=== PATIENT | male | born 1970 | race Caucasian/White ===

== ENCOUNTER 2020-02-17 15:38 | Inpatient (IN) | payer OTHER ==
[2020-02-17] VITALS (10 sets, daily range): BP systolic 109–163; BP diastolic 72–100
[~2020-02-17] VITALS: Ht 180.3 cm; Wt 78.9 kg
[2020-02-17 16:45] LABS: HEMATOCRIT 38.9 % (42.0-52.0); HEMOGLOBIN 13.6 gm/dL (14.0-18.0); MCV 105.7 fL (80.0-100.0); MPV 8.5 fl. (7.2-11.1); NUCLEATED RBCS 0 /100WBC; PLATELET COUNT* 230 thou/uL (150-400); RBC 3.68 mil/uL (4.50-6.00); RDW-CV 12.5 % (10.5-14.5); WBC 18.7 thou/uL (4.0-11.0)
[2020-02-17 16:55] LABS: CALCIUM 8.3 mg/dL (8.5-10.1); CREATININE 1.5 mg/dL (0.6-1.3); POTASSIUM 3.5 mmol/L (3.5-5.1)
[2020-02-17 16:56] LABS: APTT 26.4 Seconds (25.0-31.3); INR 1.3; PROTIME 13.4 Seconds (9.20-11.50)
[2020-02-17 17:00] LABS: ALBUMIN 3.3 g/dL (3.4-5.0); PHOSPHORUS* 2.7 mg/dL (2.5-4.9); TOTAL PROTEIN 7.3 g/dL (6.4-8.2)
[2020-02-17 17:03] LABS: MAGNESIUM 0.8 mg/dL (1.8-2.4)
[2020-02-17 17:06] LABS: ABSOLUTE LYMPHOCYTES 1.3 thou/uL (0.8-5.3); ABSOLUTE MONOCYTES 0.9 thou/uL (0.0-1.2); ABSOLUTE NEUTROPHILS 16.5 thou/uL (1.6-8.1); ATYPICAL LYMPHS 3 %; PLATELET ESTIMATE ADEQUATE
[2020-02-17 17:11] LABS: ACETAMINOPHEN < 2 ug/mL (10-30); ALCOHOL < 10 mg/dL (<10); SALICYLATE < 2.8 mg/dL (2.8-20.0)
[2020-02-17 19:03] LABS: URINE BILIRUBIN NEGATIVE (Negative); URINE BLOOD NEGATIVE (Negative); URINE CLARITY CLEAR; URINE COLOR YELLOW; URINE GLUCOSE-RANDOM NEGATIVE (Negative); URINE KETONES NEGATIVE (Negative); URINE LEUKOCYTES-REFLEX NEGATIVE (Negative); URINE NITRITE-REFLEX NEGATIVE (Negative); URINE PROTEIN NEGATIVE (Negative); URINE SPECIFIC GRAVITY <= 1.005 (1.005-1.030); URINE UROBILINOGEN 0.2 E.U./dl (0.2-1.0)
--- NOTE | 2020-02-17 19:05 | NUR ---
PT APPEARS TO BE HAVING A LOT OF DIFFICULTY USING A URINAL. PT WAS INSTRUCTED BY THIS NURSE, AND BED LINNENS, GOWN AND UNDERGARMENTS WERE CHANGED.
[2020-02-17 19:12] LABS: AMP/METHAMP Negative (Negative); BARBITURATES Negative (Negative); BENZODIAZEPINES Negative (Negative); COCAINE Negative (Negative); METHADONE Negative (Negative); OPIATES Negative (Negative); PCP Negative (Negative); THC Negative (Negative)
--- NOTE | 2020-02-17 23:06 | NUR ---
PT ADMITTED TO ICU AT 1915 FOR ETOH WITHDRAWEL. PT'S CIWA SCORE 16 UPON ARRIVAL. PT ANXIOUS, RESTLESS, IMPULSIVE AND CONFUSED. PT GIVEN ATIVAN ER CIWA PROTOCOL. PT'S FRIEND PROVIDED HEALTH HISTORY AND INFORMATION REGARDING RECENT EVENTS. PT IS ORIGINALLY FROM [facility] AND BEEN HERE SINCE ATTENDING COLLEGE IN [place]. 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 PT NO LONGER WORKING DUE TO COVID. PT WAS LIVING WITH ABOVE STATED FRIEND BUT EAS NOT ALLOWED TO DRINK IN HIS HOME SO HE LEFT AND HAS BEEN LIVING IN THE [facility]. FRIEND STATES PATIENT HAS BEEN A DAILY DRINKER FOR GREATER THAN TEN YEARS THAT HE KNOWS OF. PT IS UNMARRIED WITH NO CHILDREN. ALL FAMILY MEMBERS ARE IN HIS [facility].
[2020-02-18] VITALS (42 sets, daily range): BP systolic 88–169; BP diastolic 56–129
[2020-02-18 01:15] LABS: HEMATOCRIT 30.2 % (42.0-52.0); MCHC 35.8 g/dL (28.0-37.0); MCV 106.1 fL (80.0-100.0); RBC 2.85 mil/uL (4.50-6.00); RDW-CV 12.6 % (10.5-14.5); WBC 13.9 thou/uL (4.0-11.0)
[2020-02-18 01:17] LABS: HEMOGLOBIN 10.8 gm/dL (14.0-18.0)
[2020-02-18 01:27] LABS: ALBUMIN 2.7 g/dL (3.4-5.0); CALCIUM 7.4 mg/dL (8.5-10.1); CREATININE 1.1 mg/dL (0.6-1.3); POTASSIUM 3.4 mmol/L (3.5-5.1); TOTAL BILIRUBIN 1.8 mg/dL (<0.1-1.0); TOTAL PROTEIN 5.9 g/dL (6.4-8.2)
[2020-02-18 06:35] LABS: MAGNESIUM 2.2 mg/dL (1.8-2.4); POTASSIUM 3.7 mmol/L (3.5-5.1)
--- NOTE | 2020-02-18 11:41 | EKG ---
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: TIMMY : 1970 Requested By: Radha Mcqueen Order Number: [id number] MD: Anrdes Sanchez Measurements Intervals [place] Rate: 138 P: 62 MD: 101 QRS: -48 QRSD: 95 T: 0 QT: 324 QTc: 491 Interpretive Statements Sinus tachycardia Left anterior fascicular block Abnormal R-wave progression, late transition Minimal ST depression, diffuse leads Borderline prolonged QT interval No previous ECG available for comparison Electronically Signed On 02-18-2020 11:41:43 CDT by Andres Sanchez [email or web address] <ELECTRONICALLY SIGNED> By: Otilio Sanchez MD, [facility] 02/18/20 1141 1603 1603 Otilio Sanchez MD, [facility] /EPI
--- NOTE | 2020-02-18 16:53 | NUR ---
ASSUMED CARE OF PT AROUND 0730 THIS AM. REFER TO ASSESSMENT. PT GIVEN IV ATIVAN INDICATED THIS SHIFT. IVF INFUSING ORDERED. CIWA MONITORED THROUGHOUT SHIFT. PT CALM AND COOPERATIVE THIS SHIFT. EASILY REORIENTED. VSS. TELE SR. IV METOPROLOL HELD FOR A FEW DOSES THIS SHIFT D/T SOFT BLOOD PRESSURES AND MORE CONTROLED HEART RATE. PT TOLERATING CLEAR LIQUID DIET. NO OTHER CONCERNS AT THIS TIME. CLWR. WCTM.
--- NOTE | 2020-02-18 20:14 | NUR ---
INITAL ASSESMENT COMPLETED AT 1999. PT'S CIWA SCORE 16. PT ATTEMPTING TO EXIT BED. PT GIVEN PRN ATIVAN IV PER CIWA PROTOCOL. BED RAILS UP X4, BED ALARM ON. FREQUENT VISUAL CHECKS DONE.
--- NOTE | 2020-02-18 20:45 | NUR ---
PT ATTEMPTING TO CLIMB OUT OF BED BETWEEN SIDE RAILS. PT GIVEN PRN ATIVAN
--- NOTE | 2020-02-18 21:13 | NUR ---
PT PULLLING OFF MONITORING EQUIPMENT AND ATTEMPTING TO REMOVE MEDINA CATHETER. PT GIVEN PRN HALDOL.
--- NOTE | 2020-02-18 22:25 | NUR ---
PT PULLING OFF MONITORING EQUIPMENT AND ATTEMPTING TO PULL OUT MEDINA CATHETER. CIWA >25
--- NOTE | 2020-02-18 22:59 | NUR ---
PT CLIMBING OVER SIDE RAILS. PT REPOSITIONED IN BED. PRN ATIVAN GIVEN FOR CIWA SCORE OF 30.
[2020-02-19] VITALS (46 sets, daily range): BP systolic 93–168; BP diastolic 61–110
--- NOTE | 2020-02-19 02:35 | NUR ---
PT PULLED OFF LEADS AND ATTEMPTING TO CLIMB OVER SIDE RAILS. PRN ATIVAN GIVEN FOR CIWA OF 30.
[2020-02-19 03:05] LABS: GLYCOHEMOGLOBIN (HGB A1C) 5.2 % (4.8-5.6)
--- NOTE | 2020-02-19 04:34 | NUR ---
PT PULED LEADS OFF AND ATTEMPTING TO REMOVE MEDINA.
[2020-02-19 04:37] LABS: HEMATOCRIT 28.1 % (42.0-52.0); MCHC 35.7 g/dL (28.0-37.0); MCV 106.6 fL (80.0-100.0); MPV 8.3 fl. (7.2-11.1); RBC 2.63 mil/uL (4.50-6.00); RDW-CV 12.4 % (10.5-14.5); WBC 9.3 thou/uL (4.0-11.0)
[2020-02-19 04:56] LABS: ALBUMIN 2.7 g/dL (3.4-5.0); CALCIUM 7.2 mg/dL (8.5-10.1); CREATININE 0.9 mg/dL (0.6-1.3); MAGNESIUM 1.6 mg/dL (1.8-2.4); POTASSIUM 3.4 mmol/L (3.5-5.1); TOTAL BILIRUBIN 1.4 mg/dL (<0.1-1.0); TOTAL PROTEIN 5.9 g/dL (6.4-8.2)
[2020-02-19 13:35] LABS: MAGNESIUM 1.9 mg/dL (1.8-2.4); POTASSIUM 3.7 mmol/L (3.5-5.1)
--- NOTE | 2020-02-19 14:56 | NUR ---
ICU rounds: ETOH w/drawal. CIWA is 21, down from 30 yesterday. Replacing electrolytes. PRN ativan. BP elevated, on scheduled low pressor. Pt was sound asleep when CM went to assess, left VM for Pt's contact. Will continue to f/u to complete assessment.
--- NOTE | 2020-02-19 19:31 | NUR ---
CIWA DECREASING OVER THE DAY, LAST ONE 10. VSS. METOPROLOL SCHEDULED FOR HIGH BP. BANANA BAG AT 100 MLS/HR. PT WAS REALLY HUNGRY, HAD SOME SNACKS AND ATE 100% OF HIS DINNER, HAD TO BE FED. OUT OF BED IN A CHAIR FOR FEW MINUTES, MIN ASSIST x1. PROGRESSING TOWARDS GOALS.
--- NOTE | 2020-02-19 22:12 | NUR ---
INITAL ASSESMENT COMPLETED AT 1999. PT RESTING QUIETLY IN BED AT THAT TIME WATCHING TELEVISION. CIWA SCORE AT 7 DURING THAT TIME. AT 2200 PT ATTEMTING TO CLIMB OVER SIDE RAILS STATING HE WAS GOING OUTSIDE. PT ALERT TO PERSON AND SITUATION. PT HAVING DISORGANIZED SPEECH AND DIFFICULTY REMEMBERING OR FOLLOWING INSTRUCTIONS. PT HAVING SEVERE TREMORS, CIWA SCORE >20. PT GIVEN PRN MEDS, REPOSITIONED AND MAINTAINED UNDER DIRECT WATCH AT THIS TIME.
--- NOTE | 2020-02-19 22:50 | NUR ---
PT'S CIWA SCORE AT 25. PT GIVEN ADDITIONAL 4 MG ATIVAN AT 2230. PT DISROBING AND ATTEMTING TO CLIMB OVER SIDE RAILS.
--- NOTE | 2020-02-19 23:11 | NUR ---
PT PULLING OFF MONITORING EQUIPMENT AND ATTEMPTING TO CLIMB OVER SIDE RAILS.
--- NOTE | 2020-02-19 23:41 | NUR ---
PT'S CIWA SCORE AT THIS TIME AT 35. PT HAVING VISUAL HALLICINATIONS, SEEING COCKROACHES ON THE CEILING. PT NO LONGER AWARE HE IS IN THE HOSPITAL, THINKS HE IS AT HOME. PT STILL ATTEMPTING TO CLIMB OVER SIDE RAILS.
[2020-02-20] VITALS (31 sets, daily range): BP systolic 94–190; BP diastolic 51–131
--- NOTE | 2020-02-20 01:06 | NUR ---
PT CONTINUES TO HAVE VISUAL HALLUCINATIONS. PT PULLING OFF MONITOR EQUIPMENT AND ATTEMPTING TO GET OUT OF BED.
--- NOTE | 2020-02-20 02:29 | NUR ---
PT PULLING OFF MONITOR EQUIPMENT AND ATTEMPTING TO CLIMB OUT OF BED.
--- NOTE | 2020-02-20 03:43 | NUR ---
ENTERED PT'S ROOM TO HEAR HIM TALKING TO UNSEEN PERSON. ASKED PT WHO HE WAS TALKING TO. PT STATED HE WAS TALKING TO HIS PARENTS. PT'S HEART RATE 130, PTT'S CIWA SCORE AT 35. PT GIVEN SCHEDULED IV METOPROLOL, PRN HALDOL AND PRN ATIVAN.
[2020-02-20 04:14] LABS: HEMATOCRIT 27.4 % (42.0-52.0); HEMOGLOBIN 9.9 gm/dL (14.0-18.0); MCH 38.6 pg (26.0-34.0); MCV 107.1 fL (80.0-100.0); MPV 8.5 fl. (7.2-11.1); RBC 2.55 mil/uL (4.50-6.00); RDW-CV 12.1 % (10.5-14.5); WBC 9.9 thou/uL (4.0-11.0)
[2020-02-20 04:29] LABS: ALBUMIN 2.6 g/dL (3.4-5.0); CALCIUM 7.8 mg/dL (8.5-10.1); CREATININE 0.9 mg/dL (0.6-1.3); MAGNESIUM 1.5 mg/dL (1.8-2.4); POTASSIUM 3.6 mmol/L (3.5-5.1); TOTAL BILIRUBIN 1.4 mg/dL (<0.1-1.0); TOTAL PROTEIN 5.8 g/dL (6.4-8.2)
--- NOTE | 2020-02-20 06:39 | NUR ---
PT SLEEPING SINCE 344. PT CONFUSED AND HAVING AUDIO AND VISUAL HALLUCINATIONS DURING NIGHT. CIWA SCORE AT HIGHEST WAS 35 CURRENTLY AT 9. PT RECIEVED A TOTAL OF 32 MG IV ATIVAN DURING SHIFT AND 15 MG HALDOL DURING SHIFT. PT BECOMING MORE IMPULSIVE FROM PRIOR SHIFTS.
[2020-02-20 09:23] LABS: % SATURATION 33 % (20-39); IRON 53 ug/dL (50-175)
--- NOTE | 2020-02-20 16:15 | NUR ---
ICU rounds: Pt given ativan and haldol last night, alert and oriented today. CIWA is 10. Pt resides at a motel with his friend. Independent. No DME. No hx of HH or SNF. [facility] to screen for [facility]. No needs anticipated. Following.
--- NOTE | 2020-02-20 16:21 | NUR ---
PT'S WALLET, PASSPORT AND CAR KEYS HANDED OVER TO HIS FRIEND, STEVEN.
--- NOTE | 2020-02-20 19:31 | NUR ---
PT VERY DROWSY AT THE BEGINNING OF THE SHIFT BUT STARTING TO WAKE UP THE DAY PASSED. COMPLAINED OF BEING VERY HUNGRY AND ATE 50-60% OF HIS MEALS. CIWA 10-12. TRIED GETTING OUT OF BED COUPLE OF TIMES, REORIENTATION PROVIDED. ORAL ATIVAN SCHEDULED. MAG REPLACED. PARTIAL BED BATH AND ORAL CARE GIVEN.
[2020-02-21] VITALS (12 sets, daily range): BP systolic 103–184; BP diastolic 66–118
--- NOTE | 2020-02-21 04:48 | NUR ---
ASSUMED PATIENT CARE AT 1900. ASSESSMENTS COMPLETED CHARTED. CARDIAC MONITORING IN PLACE. PATIENT WAS ANXIOUS AND IMPULSIVE AT TIMES DURING SHIFT. PATIENT KEPT PULLING HIS OXYGEN SATURATION PROBE OFF. PATIENT FREQUENTLY REORIENTED TO TIME, PLACE, AND SITUATION. FALL PRECAUTIONS IN PLACE FOR PATIENT SAFETY. BED LOCKED AND IN LOWEST POSITION. CLWR.
--- NOTE | 2020-02-21 13:31 | NUR ---
SPOKE WITH PT'S BEST FRIEND AND HE IS GOING TO TALK TO CASE MANAGEMENT WHEN APPROPRIATE FOR PT COUNTUING CARE POST HOSPITALIZATION. PT TOLERATING PO WELL AND IS HAVING PERIODS OF LUCID THOUGHT. WILL CONTINUE TO ASSESS.
--- NOTE | 2020-02-21 14:38 | NUR ---
ICU rounds: CIWA down to 8. Continue with withdrawing protocol, Pt asking for cigarettes and beer.
--- NOTE | 2020-02-21 23:27 | NUR ---
ASSUMED PATIENT CARE AT 1900. ASSESSMENT COMPLETED CHARTED. CARDIAC MONITORING IN PLACE. SEIZURE PRECAUTIONS IN PLACE FOR PATIENT SAFETY. FALL PRECAUTIONS IN PLACE FOR PATIENT SAFETY. BED LOCKED AND IN LOWEST POSITION. PATIENT REPORT GIVEN TO TELEMETRY NURSE HOLLI. PATIENT TRANSFERRED TO TELE WITH ALL BELONGINGS.
[2020-02-22] VITALS: BP 128/82
[2020-02-22 04:00] VITALS: BP 142/93
[2020-02-22 04:15] LABS: HEMATOCRIT 29.2 % (42.0-52.0); HEMOGLOBIN 10.3 gm/dL (14.0-18.0); MCH 37.8 pg (26.0-34.0); MCHC 35.3 g/dL (28.0-37.0); MCV 107.1 fL (80.0-100.0); MPV 8.7 fl. (7.2-11.1); RBC 2.72 mil/uL (4.50-6.00); RDW-CV 12.9 % (10.5-14.5); WBC 12.2 thou/uL (4.0-11.0)
[2020-02-22 04:38] LABS: ALBUMIN 2.8 g/dL (3.4-5.0); CALCIUM 8.1 mg/dL (8.5-10.1); CREATININE 1.2 mg/dL (0.6-1.3); MAGNESIUM 1.7 mg/dL (1.8-2.4); POTASSIUM 3.6 mmol/L (3.5-5.1); TOTAL BILIRUBIN 0.8 mg/dL (<0.1-1.0); TOTAL PROTEIN 6.4 g/dL (6.4-8.2)
--- NOTE | 2020-02-22 05:13 | NUR ---
RECEIVED PT FROM ICU AND ASSUMED PT CARE AT APPROX 2049. PT IS AWAKE ORIENTED TO SELF AND PLACE, CONFUSED AND FORGETFUL. ASSESSMENT DONE AND CHARTED. PT IS ASKING MULTIPLE TIMES FOR A "DRINK" AND SAYING HE'D FEEL BETTER IF HE GETS TO DRINK. REORIENTATION PROVIDED. PT IS ABLE TO REST SOME THIS SHIFT, AND IS TRYING TO GET OUT OF BED COUPLE OF TIMES. HIGH FALL PRECAUTIONS IN PLACE. CALL LIGHT WITHIN REACH. HOURLY ROUNDING DONE FOR PT SAFETY.
--- NOTE | 2020-02-22 07:10 | NUR ---
CHANGE OF SHIFT, BEDSIDE REPORT GIVEN PATIENT SEEN AT BESIDE IN BED RESTING ASSUMED PATIENT CARE
[2020-02-22 08:00] VITALS: BP 146/81
[2020-02-22 11:30] VITALS: BP 149/91
--- NOTE | 2020-02-22 15:31 | NUR ---
cm f/u w/pt to discuss d/c planning. pt stated his plan is to return to his extended stay motel until he can find another job, as he was "let go b/c of [employer]" from [facility] a couple of months ago, after leaving a job in [place] d/t being let go. 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 pt states he has a "really close friend of 20 yrs, he is the one who brought me to the hospital," stated the pt. "I can stay with him if I want." pt stated he doesnt want to intrude on his friends privacy b/c his and teenager lives there. pt states he has some money save b/c he made a good salary at his last place of employment. cm to cont to assist as needed.
[2020-02-22 16:00] VITALS: BP 89/61
[2020-02-22 20:00] VITALS: BP 132/92
[2020-02-23] VITALS: BP 140/102
[2020-02-23 04:00] VITALS: BP 145/86
--- NOTE | 2020-02-23 04:52 | NUR ---
ASSUMED PT CARE AT APPROX 1930. PT IS AWAKE, ORIENTED TO SELF AND PLACE AND SITUATION. PT IS TRACING SR/ST ON THE SUPERVISOR TYPE PHOTOGRAPHY. PT HAS EPISODES OF CONFUSION AND IS IMPULSIVE AT TIMES BUT REDIRECTABLE. PT IS NOT IN DISTRESS, NO DESATURATIONS NOTED. CIWA CHARTED. PT HAS EPISTAXIS AT APPROX 0330 BUT STOPPED WITH NASAL PRESSURE AND REST. NO OTHER CHANGES THROUGHOUT THIS SHIFT. CALL LIGHT WITHIN REACH. HIGH FALL PRECAUTIONS IN PLACE. HOURLY ROUNDING DONE FOR PT SAFETY.
[2020-02-23 08:00] VITALS: BP 140/76
--- NOTE | 2020-02-23 08:00 | NUR ---
ASSUMED CARE OF PATIENT THIS MORNING FROM NIGHT NURSE. PT IS DOING WELL TODAY AND SHOULD BE DISCHARGED TODAY. HE WAS EDUCATED ON POC, DISEASE PROCESS AND USING THE CALL LIGHT FOR ASSISTANCE.
[2020-02-23] MEDS ORDERED: VITAMIN B-1100 M1 PO (09:05)
[2020-02-23] MEDS ORDERED: METOPROLOL TART25 MG PO (09:05)
[2020-02-23] MEDS ORDERED: OMEPRAZOLE40 MG PO (09:05)
[2020-02-23] MEDS ORDERED: PRINIVIL10 MG PO (09:05)
[2020-02-23 11:42] VITALS: BP 140/76
== END 2020-02-23 13:00 | disposition home or self-care (01) | DRG 896 ==
LOC: M.ERS 15:38 → M.TBA-ER 17:09 → M.ICU 19:12 → M.2W 02-21 21:08
PROVIDERS: Nurse Practitioner Family; ADMIT Internal Medicine; ATTEND Internal Medicine
DX: F10.230 Alcohol dependence with withdrawal, uncomplicated (principal); N17.0 Acute kidney failure with tubular necrosis; I16.1 Hypertensive emergency; E87.2 Acidosis; Z20.828 Contact with and (suspected) exposure to other viral communicable diseases; E44.0 Moderate protein-calorie malnutrition; R04.0 Epistaxis; F17.210 Nicotine dependence, cigarettes, uncomplicated; E83.42 Hypomagnesemia; Z68.24 Body mass index [BMI] 24.0-24.9, adult; Z79.899 Other long term (current) drug therapy

== ENCOUNTER 2020-06-18 15:34 | Emergency (ER) | payer OTHER ==
[~2020-06-18] VITALS: Ht 177.8 cm; Wt 79.4 kg
[~2020-06-18 15:34] MED LIST: METOPROLOL TART25 MG PO; OMEPRAZOLE40 MG PO; PRINIVIL10 MG PO; VITAMIN B-1100 M1 PO
[2020-06-18 15:59] LABS: ABSOLUTE BASOPHILS 0.1 thou/uL (0.0-0.2); ABSOLUTE EOSINOPHILS 0.3 thou/uL (0.0-0.7); ABSOLUTE LYMPHOCYTES 3.7 thou/uL (0.8-5.3); ABSOLUTE MONOCYTES 1.3 thou/uL (0.0-1.2); ABSOLUTE NEUTROPHILS 5.2 thou/uL (1.6-8.1); BASOPHILS 0.7 %; HEMATOCRIT 38.3 % (42.0-52.0); HEMOGLOBIN 13.4 gm/dL (14.0-18.0); MCH 36.2 pg (26.0-34.0); MCHC 34.9 g/dL (28.0-37.0); MCV 103.8 fL (80.0-100.0); NUCLEATED RBCS 0 /100WBC; PLATELET COUNT* 222 thou/uL (150-400); POLYS 49.3 %; RBC 3.69 mil/uL (4.50-6.00); RDW-CV 14.7 % (10.5-14.5); WBC 10.6 thou/uL (4.0-11.0)
[2020-06-18 16:00] LABS: URINE BILIRUBIN NEGATIVE (Negative); URINE BLOOD NEGATIVE (Negative); URINE CLARITY CLEAR; URINE COLOR YELLOW; URINE GLUCOSE-RANDOM NEGATIVE (Negative); URINE KETONES NEGATIVE (Negative); URINE LEUKOCYTES-REFLEX NEGATIVE (Negative); URINE NITRITE-REFLEX NEGATIVE (Negative); URINE PROTEIN NEGATIVE (Negative); URINE UROBILINOGEN 0.2 E.U./dl (0.2-1.0)
[2020-06-18 16:16] LABS: ACETAMINOPHEN < 2 ug/mL (10-30); ALCOHOL 257 mg/dL (<10); CREATININE 0.8 mg/dL (0.6-1.3); POTASSIUM 3.4 mmol/L (3.5-5.1); SALICYLATE < 2.8 mg/dL (2.8-20.0)
[2020-06-18 16:21] LABS: TOTAL BILIRUBIN 0.9 mg/dL (<0.1-1.0); TOTAL PROTEIN 7.1 g/dL (6.4-8.2)
[2020-06-18 16:21] LABS: AMP/METHAMP Negative (Negative); BARBITURATES Negative (Negative); BENZODIAZEPINES POSITIVE (Negative); COCAINE Negative (Negative); METHADONE Negative (Negative); OPIATES Negative (Negative); PCP Negative (Negative); THC Negative (Negative)
[2020-06-18 18:35] VITALS: BP 138/74
== END 2020-06-18 18:35 | disposition home or self-care (01) ==
LOC: M.ERS 15:34
PROVIDERS: Family Medicine
DX: F10.129 Alcohol abuse with intoxication, unspecified (principal); Z79.899 Other long term (current) drug therapy; Y90.9 Presence of alcohol in blood, level not specified